=== PATIENT | female | born 1980 | race Two or more races ===

== ENCOUNTER 2017-03-08 12:36 | Inpatient (IN) | payer BC, MEDICAID ==
[~2017-03-08] VITALS: Ht 162.6 cm; Wt 85.7 kg
[2017-03-08 12:47] VITALS: BP 117/80
--- NOTE | 2017-03-08 12:59 | Emergency Room Report ---
History of Present Illness General Chief Complaint: Skin Rash/Abscess Source: Patient Present Illness HPI 36-year-old female presents to the ED for recurrent infections Patient states that she has been having recurrent symptoms in the groin area off and on for 10 years. She states she has tried various oral antibiotic regimens in addition to injection antibiotic regimens without relief of her symptoms. pt. denies fevers or chills at this time. pt. reports 2/10 tenderness upon palpation otherwise denies pain. Denies CP, Palpitations, LOC, AMS, dizziness, Changes in Vision, Sensation, paresthesias, or a sudden severe headache. Allergies: Coded Allergies: CIPROFLOXACIN (Verified Allergy, Mild, Joint Pain, 03/08/17) Patient History Past Medical History: see triage record Past Surgical History: none Pertinent Family History: none Now: No Reviewed Nursing Documentation: PMH: Agreed, PSxH: Agreed Nursing Documentation-PMH Hx Gastrointestinal Problems: No - HIDRADENITIS SUPPURATIVA Review of Systems All Other Systems: negative except mentioned in HPI Physical Exam Vital Signs Date Time Temp Pulse Resp B/P (MAP) Pulse Ox O2 Delivery O2 Flow Rate FiO2 03/08/17 12:40 97.5 83 20 117/80 99 Room Air Sp02 EP Interpretation: reviewed, normal General Appearance: no apparent distress, alert, GCS 15, non-toxic Head: normocephalic, atraumatic Eyes: bilateral eye normal inspection, bilateral eye PERRL ENT: hearing grossly normal, normal voice Neck: full range of motion Respiratory: lungs clear, normal breath sounds, speaking full sentences Cardiovascular #1: regular rate, rhythm Gastrointestinal: normal bowel sounds, non tender, soft Rectal: deferred Genitourinary: other - multiple swollen indurations with tunneling present on the inner proximal thighs, bilateral groin area and bilateral external labia. no discharge, some erythema, no blisters or open lesions. Musculoskeletal: back normal, gait/station normal, normal range of motion, non- tender Neurologic: alert, oriented x3, responsive, motor strength/tone normal, sensory intact, speech normal Psychiatric: judgement/insight normal, memory normal, mood/affect normal, no suicidal/homicidal ideation Reflexes: 4+ bicep (R), 4+ bicep (L), 4+ tricep (R), 4+ tricep (L), 4+ knee (R) , 4+ knee (L) Skin: normal color, no rash, warm/dry, well hydrated Lymphatic: no adenopathy Medical Decision Making PA Attestation Dr. paul is my supervising Physician whom patient management has been discussed with. Diagnostic Impression: Primary Impression: Hidradenitis suppurativa Additional Impression: UTI (urinary tract infection) Qualified Codes: N30.00 - Acute cystitis without hematuria ER Course 36-year-old female presents to the ED for recurrent infections Patient states that she has been having recurrent symptoms in the groin area off and on for 10 years. She states she has tried various oral antibiotic regimens in addition to injection antibiotic regimens without relief of her symptoms. pt. denies fevers or chills at this time. pt. reports 2/10 tenderness upon palpation otherwise denies pain. Denies CP, Palpitations, LOC, AMS, dizziness, Changes in Vision, Sensation, paresthesias, or a sudden severe headache. Ddx considered but are not limited to cellulitis, hydradenitis Suppurativa, fracture, d/L, gout, sepsis, abscess Vital signs: are WNL, pt. is afebrile H&PE are most consistent with Vulval hydradenitis Suppurativa requiring direct admission for surgical or IV abx management. ORDERS: -Gen. preop labwork: CBC, CMP, PT/PTT, Type and Screen -- Pt. blood type O Positive -Urine Hcg: negative - UA : positive for UTI- elevated WBC's and leukocytes in the presence of bacteria. - EK BPM NSR , no acute changes. ED INTERVENTIONS: None required at this time. -Surgical Consult : DISPOSITION: at this time pt. will be admitted to Dr. Yañez for hydradenitis Suppurativa. Dr. Yañez agreed to admit the pt. and to continue pt. care management. Labs Test 03/08/17 12:40 03/08/17 13:15 03/08/17 13:30 Urine Color Pale yellow Urine Appearance Slightly cloudy Urine pH 6 (4.5-8.0) Urine Specific [place] 1.010 (1.005-1.035) Urine Protein Negative (NEGATIVE) Urine Glucose (UA) Negative (NEGATIVE) Urine Ketones Negative (NEGATIVE) Urine Occult Blood Negative (NEGATIVE) Urine Nitrite Negative (NEGATIVE) Urine Bilirubin Negative (NEGATIVE) Urine Urobilinogen Normal MG/DL (0.0-1.0) Urine Leukocyte Esterase 2+ (NEGATIVE) Urine RBC 0-2 /HPF (0 - 2) Urine WBC 5-10 /HPF (0 - 2) Urine Squamous Epithelial Cells Many /LPF (NONE/OCC) Urine Bacteria Few /HPF (NONE) Urine HCG, Qualitative Negative Lactic Acid Level 1.20 mmol/L (0.66-2.22) White Blood Count 8.6 K/UL (4.8-10.8) Red Blood Count 3.92 M/UL (4.20-5.40) Hemoglobin 12.6 G/DL (12.0-16.0) Hematocrit 38.3 % (37.0-47.0) Mean Corpuscular Volume 98 FL (80-99) Mean Corpuscular Hemoglobin 32.2 PG (27.0-31.0) Mean Corpuscular Hemoglobin Concent 32.9 G/DL (32.0-36.0) Red Cell Distribution Width 11.8 % (11.6-14.8) Platelet Count 213 K/UL (150-450) Mean Platelet Volume 9.0 FL (6.5-10.1) Neutrophils (%) (Auto) 53.2 % (45.0-75.0) Lymphocytes (%) (Auto) 31.5 % (20.0-45.0) Monocytes (%) (Auto) 8.8 % (1.0-10.0) Eosinophils (%) (Auto) 5.4 % (0.0-3.0) Basophils (%) (Auto) 1.1 % (0.0-2.0) Prothrombin Time 10.7 SEC (9.30-11.50) Prothromb Time International Ratio 1.0 (0.9-1.1) Activated Partial Thromboplast Time 28 SEC (23-33) Sodium Level 141 MMOL/L (136-145) Potassium Level 3.5 MMOL/L (3.5-5.1) Chloride Level 104 MMOL/L (98-107) Carbon Dioxide Level 23 MMOL/L (21-32) Anion Gap 14 mmol/L (5-15) Blood Urea Nitrogen 7 mg/dL (7-18) Creatinine 0.6 MG/DL (0.55-1.30) Estimat Glomerular Filtration Rate > 60 mL/min (>60) Glucose Level 93 MG/DL (74-106) Calcium Level 8.7 MG/DL (8.5-10.1) Total Bilirubin 0.5 MG/DL (0.2-1.0) Aspartate Amino Transf (AST/SGOT) 17 U/L (15-37) Alanine Aminotransferase (ALT/SGPT) 18 U/L (12-78) Alkaline Phosphatase 54 U/L (46-116) Total Protein 8.1 G/DL (6.4-8.2) Albumin 3.5 G/DL (3.4-5.0) Globulin 4.6 g/dL Albumin/Globulin Ratio 0.8 (1.0-2.7) EKG Diagnostic Results EP Interpretation: Dr. Salinas Rate: normal - 72 BPM Rhythm: NSR ST Segments: no acute changes ASA given to the pt in ED: No PA Scribe Text This interpretation was scribed by JB Martinez Last Vital Signs Date Time Temp Pulse Resp B/P (MAP) Pulse Ox O2 Delivery O2 Flow Rate FiO2 03/08/17 12:40 97.5 83 20 117/80 99 Room Air Disposition: ADMITTED INPATIENT Condition: Serious Scripts No Active Prescriptions or Reported Meds Agustina Martinez Mar 08, 2017 12:59
[2017-03-08 13:02] LABS: APPEARANCE,URINE SLIGHTLY CLOUDY; KETONES,URINE NEGATIVE (NEGATIVE); LEUKOCYTE ESTERASE ,URINE 2+ (NEGATIVE); NITRITE,URINE NEGATIVE (NEGATIVE); PH,URINE 6 (4.5-8.0); PROTEIN,URINE NEGATIVE (NEGATIVE); UROBILINOGEN,URINE NORMAL MG/DL (0.0-1.0)
[2017-03-08 13:26] LABS: BACTERIA,URINE FEW /HPF; RBC,URINE 0-2 /HPF (0 - 2); SQUAMOUS EPITHELIAL CELL,UR MANY /LPF (NONE/OCC)
[2017-03-08 14:00] LABS: BASOPHILS % (AUTO) 1.1 % (0.0-2.0); EOSINOPHILS % (AUTO) 5.4 % (0.0-3.0); LYMPHOCYTES % (AUTO) 31.5 % (20.0-45.0); MEAN CORPUSCULAR HEMOGLOBIN 32.2 PG (27.0-31.0); MEAN CORPUSCULAR HGB CONC 32.9 G/DL (32.0-36.0); MEAN CORPUSCULAR VOLUME 98 FL (80-99); MONOCYTES % (AUTO) 8.8 % (1.0-10.0); NEUTROPHILS % (AUTO) 53.2 % (45.0-75.0); PLATELET COUNT 213 K/UL (150-450); RED BLOOD COUNT 3.92 M/UL (4.20-5.40); RED CELL DISTRIBUTION WIDTH 11.8 % (11.6-14.8); WHITE BLOOD COUNT 8.6 K/UL (4.8-10.8)
[2017-03-08 14:11] LABS: PROTHROMBIN TIME 10.7 SEC (9.30-11.50)
[2017-03-08 14:12] LABS: ANION GAP 14 mmol/L (5-15); CALCIUM 8.7 MG/DL (8.5-10.1); CARBON DIOXIDE 23 MMOL/L (21-32); CHLORIDE 104 MMOL/L (98-107); CREATININE 0.6 MG/DL (0.55-1.30); GLOMERULAR FILTRATION RATE > 60 mL/min (>60); POTASSIUM 3.5 MMOL/L (3.5-5.1); SODIUM 141 MMOL/L (136-145)
[2017-03-08 14:16] LABS: ALANINE AMINOTRANSFERASE 18 U/L (12-78); ALBUMIN/GLOBULIN RATIO 0.8 (1.0-2.7); ASPARTATE AMINO TRANSFERASE 17 U/L (15-37); TOTAL PROTEIN 8.1 G/DL (6.4-8.2)
[2017-03-08] MEDS ORDERED: Morphine Sulfate 2mg/ml Inj IVP PRN (16:00)
[2017-03-08] MEDS ORDERED: Morphine Sulfate 4mg/ml Inj IVP PRN (16:00)
[2017-03-08] MEDS ORDERED: Zolpidem 5mg tab ORAL PRN (16:00)
[2017-03-08] MEDS ORDERED: Miralax 17gm pkt ORAL PRN (16:00)
[2017-03-08] MEDS ORDERED: Mylanta II UD 30ml ORAL PRN (16:00)
--- NOTE | 2017-03-08 16:19 | History and Physical ---
History of Present Illness General Date patient seen: Mar 08, 2017 Time patient seen: 16:19 Reason for Hospitalization: Abscess Present Illness HPI 36y/o female with pmh of hidradenitis suppurative who presents with worsening b/ l groin lesions. Pt had recurrent symptoms in groin area off and on for 10 years. She has tried various antibitoic regimens without success. She has also been on Humira up until 12/2016 but w/o much effect. She notes worsening pain/ swelling/redness/drainage from groin lesions. Denies f/c, n/v, d/c, chest pain, SOB, dysuria. Has had general anesthesia before without any problems. Able to walk a few blocks or climb at least a flight of stairs without symptoms of chest pain or SOB. Allergies: Coded Allergies: CIPROFLOXACIN (Verified Allergy, Mild, Joint Pain, 03/08/17) Medication History No Active Prescriptions or Reported Meds Patient History History Provided By: Patient, Family Member, Medical Record, PMD Healthcare decision maker Resuscitation status Advanced Directive on File Past Medical/Surgical History Past Medical/Surgical History: (1) Hidradenitis suppurativa (2) Appendectomy in 2014 (3) H/o lap band in 2004 Family History Family History: Patient reports no known family medical history. Social History Social History: (1) No significant social history Review of Systems ROS Narrative CONSTITUTIONAL: No weight loss, fever, chills, weakness or fatigue. HEENT: Eyes: No visual loss, blurred vision, double vision or yellow sclerae. Ears, Nose, Throat: No hearing loss, sneezing, congestion, runny nose or sore throat. SKIN: No rash or itching. CARDIOVASCULAR: No chest pain, chest pressure or chest discomfort. No palpitations or edema. RESPIRATORY: No shortness of breath, cough or sputum. GASTROINTESTINAL: No anorexia, nausea, vomiting or diarrhea. No abdominal pain or blood. NEUROLOGICAL: No headache, dizziness, syncope, paralysis, ataxia, numbness or tingling in the extremities. No change in bowel or bladder control. MUSCULOSKELETAL: No muscle, back pain, joint pain or stiffness. HEMATOLOGIC: No anemia, bleeding or bruising. LYMPHATICS: No enlarged nodes. No history of splenectomy. PSYCHIATRIC: No history of depression or anxiety. ENDOCRINOLOGIC: No reports of sweating, cold or heat intolerance. No polyuria or polydipsia. ALLERGIES: No history of asthma, hives, eczema or rhinitis. Physical Exam Physical Exam Narrative General: alert, cooperative, no distress, appears stated age Head: normocephalic, without obvious abnormality, atraumatic Eyes: conjunctivae/corneas clear. PERRL, EOM's intact Throat: lips, mucosa, and tongue normal. MMM Neck: supple, symmetrical, trachea midline, and no JVD Lungs: clear to auscultation bilaterally Heart: regular rate and rhythm, S1, S2 normal, no murmur, click, rub or gallop Abdomen: soft, non-tender, non-distended, bowel sounds normal; no masses or organomegaly Extremities: extremities normal, atraumatic, no cyanosis or edema Pulses: 2+ and symmetric Skin: +HS lesions of b/l groin Neurologic: grossly normal, no focal deficits Last 24 Hour Vital Signs Date Time Temp Pulse Resp B/P (MAP) Pulse Ox O2 Delivery O2 Flow Rate FiO2 03/08/17 15:40 97.5 78 20 117/80 99 Room Air 03/08/17 12:47 97.5 78 20 117/80 99 Room Air 03/08/17 12:40 97.5 83 20 117/80 99 Room Air Laboratory Tests Test 03/08/17 12:40 03/08/17 13:15 03/08/17 13:30 Urine Color Pale yellow Urine Appearance Slightly cloudy Urine pH 6 (4.5-8.0) Urine Specific [place] 1.010 (1.005-1.035) Urine Protein Negative (NEGATIVE) Urine Glucose (UA) Negative (NEGATIVE) Urine Ketones Negative (NEGATIVE) Urine Occult Blood Negative (NEGATIVE) Urine Nitrite Negative (NEGATIVE) Urine Bilirubin Negative (NEGATIVE) Urine Urobilinogen Normal MG/DL (0.0-1.0) Urine Leukocyte Esterase 2+ (NEGATIVE) H Urine RBC 0-2 /HPF (0 - 2) Urine WBC 5-10 /HPF (0 - 2) H Urine Squamous Epithelial Cells Many /LPF (NONE/OCC) H Urine Bacteria Few /HPF (NONE) Urine HCG, Qualitative Negative Lactic Acid Level 1.20 mmol/L (0.66-2.22) White Blood Count 8.6 K/UL (4.8-10.8) Red Blood Count 3.92 M/UL (4.20-5.40) L Hemoglobin 12.6 G/DL (12.0-16.0) Hematocrit 38.3 % (37.0-47.0) Mean Corpuscular Volume 98 FL (80-99) Mean Corpuscular Hemoglobin 32.2 PG (27.0-31.0) H Mean Corpuscular Hemoglobin Concent 32.9 G/DL (32.0-36.0) Red Cell Distribution Width 11.8 % (11.6-14.8) Platelet Count 213 K/UL (150-450) Mean Platelet Volume 9.0 FL (6.5-10.1) Neutrophils (%) (Auto) 53.2 % (45.0-75.0) Lymphocytes (%) (Auto) 31.5 % (20.0-45.0) Monocytes (%) (Auto) 8.8 % (1.0-10.0) Eosinophils (%) (Auto) 5.4 % (0.0-3.0) H Basophils (%) (Auto) 1.1 % (0.0-2.0) Prothrombin Time 10.7 SEC (9.30-11.50) Prothromb Time International Ratio 1.0 (0.9-1.1) Activated Partial Thromboplast Time 28 SEC (23-33) Sodium Level 141 MMOL/L (136-145) Potassium Level 3.5 MMOL/L (3.5-5.1) Chloride Level 104 MMOL/L (98-107) Carbon Dioxide Level 23 MMOL/L (21-32) Anion Gap 14 mmol/L (5-15) Blood Urea Nitrogen 7 mg/dL (7-18) Creatinine 0.6 MG/DL (0.55-1.30) Estimat Glomerular Filtration Rate > 60 mL/min (>60) Glucose Level 93 MG/DL (74-106) Calcium Level 8.7 MG/DL (8.5-10.1) Total Bilirubin 0.5 MG/DL (0.2-1.0) Aspartate Amino Transf (AST/SGOT) 17 U/L (15-37) Alanine Aminotransferase (ALT/SGPT) 18 U/L (12-78) Alkaline Phosphatase 54 U/L (46-116) Total Protein 8.1 G/DL (6.4-8.2) Albumin 3.5 G/DL (3.4-5.0) Globulin 4.6 g/dL Albumin/Globulin Ratio 0.8 (1.0-2.7) L Height (Feet): 5 Height (Inches): 4.00 Weight (Pounds): 190 Medications Current Medications Medications (Trade) Dose Ordered Sig/Dennis Route PRN Reason Start Time Stop Time Status Last Admin Dose Admin Al Hydroxide/Mg Hydroxide (Mylanta II) 30 ml Q6H PRN ORAL dyspepsia 03/08/17 16:00 04/07/17 15:59 Dextrose (Dextrose 50%) STAT PRN IV Hypoglycemia 03/08/17 16:00 04/07/17 15:59 Dextrose/Sodium Chloride 1,000 ml @ 75 mls/hr [id number] IV 03/08/17 17:00 04/07/17 16:59 Diphenhydramine HCl (Benadryl) 25 mg Q6H PRN ORAL Itching/Pruritis 03/08/17 16:00 04/07/17 15:59 Docusate Sodium (Colace) 100 mg EVERY 12 HOURS ORAL 03/08/17 21:00 04/07/17 20:59 Morphine Sulfate (Morphine Sulfate) 2 mg Q4H PRN IVP Moderate Pain (Pain Scale 4-6) 03/08/17 16:00 03/15/17 15:59 Morphine Sulfate (Morphine Sulfate) 4 mg Q4H PRN IVP Severe Pain (Pain Scale 7-10) 03/08/17 16:00 03/15/17 15:59 Ondansetron HCl (Zofran) 4 mg Q6H PRN IVP Nausea & Vomiting 03/08/17 16:00 04/07/17 15:59 Polyethylene Glycol (Miralax) 17 gm HSPRN PRN ORAL Constipation 03/08/17 16:00 04/07/17 15:59 Zolpidem Tartrate (Ambien) 5 mg HSPRN PRN ORAL Insomnia 03/08/17 16:00 03/15/17 15:59 Assessment/Plan Problem List: (1) Abscess ICD Codes: L02.91 - Cutaneous abscess, unspecified SNOMED: 251950243 (2) Hidradenitis suppurativa ICD Codes: L73.2 - Hidradenitis suppurativa SNOMED: [id number] Status: stable Assessment/Plan Admit inpt Plastic surgery consulted Check blood cultures IV antibiotics Wound care per surgery Pain control, bowel regimen Supportive care If patient is required to have surgery, based on the patient's medical history, and other available ancillary data, the patient is a LOW risk for an INTERMEDIATE risk procedure. Per the most recent ACC/AHA guidelines, the patient does not need any further cardiopulmonary testing prior to the procedure and there do not appear to be any clear medical contraindications to proceeding with the proposed procedure. D/w pt/family, RN, SW/CM, surgery regarding mgmt and dispo Wolf Feliciano M.D. Mar 08, 2017 16:19
[2017-03-08 16:23] VITALS: BP 129/59
[2017-03-08] MEDS ORDERED: ceFAZolin 1gm/50ml Premix 50 ML IV SCH ×2 (16:30→22:00)
[2017-03-08] MEDS: D5 1/2NS 1,000 ML IV SCH (16:56)
[2017-03-08] MEDS ORDERED: D5 1/2NS 1,000 ML IV SCH (17:00)
[2017-03-08] MEDS: ceFAZolin sod 1 GM in D5W 55 ML IVP SCH (17:52)
[2017-03-08 20:25] VITALS: BP 117/66
[2017-03-08] MEDS: Docusate 100mg cap ORAL SCH (20:49)
[2017-03-09] VITALS (14 sets, daily range): BP systolic 91–126; BP diastolic 56–80
[2017-03-09] MEDS: ceFAZolin sod 1 GM in D5W 55 ML IVP SCH ×4 (02:28→17:37)
[2017-03-09] MEDS: D5 1/2NS 1,000 ML IV SCH ×2 (06:22→20:35)
[2017-03-09] MEDS ORDERED: ceFAZolin 1gm/50ml Premix 50 ML IV ONE (07:05)
[2017-03-09] MEDS ORDERED: Bacitracin 50000 Units Vial ONE (07:05)
[2017-03-09] MEDS ORDERED: NeoSporin Gu Irrig 1ml Amp IRRIG ONE (07:05)
[2017-03-09] MEDS ORDERED: Lidocaine 1% 10mg/ml/EPI 0.01mg/ml 50ml INJ ONE (07:06)
--- NOTE | 2017-03-09 07:06 | Pre-Procedure Note/Attestation ---
Pre-Procedure Note/Attestation Complete Prior to Procedure Planned Procedure: bilateral Procedure Narrative: Bilateral groin and mons debridement and flap elevation Attestation I attest that I discussed the nature of the procedure; its benefits; risks and complications; and alternatives (and the risks and benefits of such alternatives ), prior to the procedure, with the patient (or the patient's legal promotions representative). I attest that, if there was a reasonable possibility of needing a blood transfusion, the patient (or the patient's legal promotions representative) was given the [facility] standardized written summary, pursuant to the Vasile Plummer Blood Safety Act ([place] Health and Safety Code # 1645, as amended). I attest that I re-evaluated the patient just prior to the surgery and that there has been no change in the patient's H&P, except as documented below: DAO CINTRON Mar 09, 2017 07:06
[2017-03-09] MEDS ORDERED: Rate Change PCA 1 Each MISC PRN (07:15)
[2017-03-09] MEDS ORDERED: PCA Education Pamphlet MISC ONE (07:15)
[2017-03-09] MEDS ORDERED: DiphenhydrAMINE 50mg/ml Inj IVP PRN ×2 (07:15→08:30)
[2017-03-09] MEDS ORDERED: Zolpidem 5mg tab ORAL PRN (07:15)
[2017-03-09] MEDS ORDERED: Morphine Sulfate 10mg/ml Inj ONE (07:30)
[2017-03-09] MEDS ORDERED: Sodium Chloride 10ml vial INJ ONE (07:30)
[2017-03-09] MEDS ORDERED: fentaNYL 100 mcg/2 mL IV ONE (07:30)
[2017-03-09] MEDS ORDERED: Midazolam 2mg/2ml Inj ONE (07:30)
[2017-03-09] MEDS ORDERED: Succinylcholine 20mg/ml 10ml vial ONE (07:30)
[2017-03-09] MEDS ORDERED: LR 1000ml ONE (07:30)
[2017-03-09] MEDS ORDERED: Sterile Water Irrig 1000ml IRRIG ONE (07:30)
[2017-03-09] MEDS ORDERED: Zemuron 50mg/5ml Inj IV ONE (07:30)
[2017-03-09] MEDS ORDERED: Ketorolac 30mg Inj ONE (07:30)
[2017-03-09] MEDS ORDERED: Neostigmine 1mg/ml 10ml Inj ONE (07:30)
[2017-03-09] MEDS ORDERED: NS Irrig 1000ml ONE (07:30)
[2017-03-09] MEDS ORDERED: Propofol 200mg/20ml IV ONE (07:30)
[2017-03-09] MEDS ORDERED: LR 1000ml 1,000 ML IVLG SCH (08:16)
--- NOTE | 2017-03-09 08:16 | Anethesia Preoperative Eval ---
Anesthesia Pre-op PMH/ROS General Date of Evaluation: Mar 09, 2017 Time of Evaluation: 07:15 Anesthesiologist: Mayra ASA Score: ASA 2 Mallampati Score Class I : Soft palate, uvula, fauces, pillars visible Class II: Soft palate, uvula, fauces visible Class III: Soft palate, base of uvula visible Class IV: Only hard plate visible Mallampati Classification: Class II Surgeon: Alejo Diagnosis: Recurrent HS Surgical Procedure: Excision of bilateral groin HS Anesthesia History: none Family History: no anesthesia problems Allergies: Coded Allergies: CIPROFLOXACIN (Verified Allergy, Mild, Joint Pain, 03/08/17) Medications: see eMAR Past Medical History Cardiovascular: Denies: HTN, CAD, MD, valve dz, arrhythmia, other Pulmonary: Denies: asthma, COPD, MICHELLE, other Gastrointestinal/Genitourinary: Reports: GERD - mild, Denies: CRI, ESRD, other Neurologic/Psychiatric: Reports: depression/anxiety, Denies: dementia, CVA, TIA, other Endocrine: Denies: DM, hypothyroidism, steroids, other HEENT: Denies: cataract (L), cataract (R), glaucoma, [place] (L), [place] (R), other Hematology/Immune: Denies: anemia, DVT, bleeding disorder, other Musculoskeletal/Integumentary: Denies: OA, RA, DJD, DDD, edema, other Other: obesity PMH Narrative: as above PSxH Narrative: Gastric band, appendectomy Anesthesia Pre-op Phys. Exam Physician Exam Last Vital Signs Date Time Temp Pulse Resp B/P (MAP) Pulse Ox O2 Delivery O2 Flow Rate FiO2 03/09/17 04:00 97.4 70 18 95/56 97 Room Air Constitutional: NAD Neurologic: CN 2-12 intact Cardiovascular: RRR Respiratory: CTA Gastrointestinal: S/NT/ND Airway Exam Mallampati Score: Class II MO: full Neck: flexible ROM: full Teeth: intact Dentures: no upper, no lower Anesthesia Pre-op A/P Labs Hematology Test 03/08/17 13:30 White Blood Count 8.6 K/UL (4.8-10.8) Red Blood Count 3.92 M/UL (4.20-5.40) L Hemoglobin 12.6 G/DL (12.0-16.0) Hematocrit 38.3 % (37.0-47.0) Mean Corpuscular Volume 98 FL (80-99) Mean Corpuscular Hemoglobin 32.2 PG (27.0-31.0) H Mean Corpuscular Hemoglobin Concent 32.9 G/DL (32.0-36.0) Red Cell Distribution Width 11.8 % (11.6-14.8) Platelet Count 213 K/UL (150-450) Mean Platelet Volume 9.0 FL (6.5-10.1) Neutrophils (%) (Auto) 53.2 % (45.0-75.0) Lymphocytes (%) (Auto) 31.5 % (20.0-45.0) Monocytes (%) (Auto) 8.8 % (1.0-10.0) Eosinophils (%) (Auto) 5.4 % (0.0-3.0) H Basophils (%) (Auto) 1.1 % (0.0-2.0) Coagulation Test 03/08/17 13:30 Prothrombin Time 10.7 SEC (9.30-11.50) Prothromb Time International Ratio 1.0 (0.9-1.1) Activated Partial Thromboplast Time 28 SEC (23-33) Chemistry Test 03/08/17 13:15 03/08/17 13:30 Lactic Acid Level 1.20 mmol/L (0.66-2.22) Sodium Level 141 MMOL/L (136-145) Potassium Level 3.5 MMOL/L (3.5-5.1) Chloride Level 104 MMOL/L (98-107) Carbon Dioxide Level 23 MMOL/L (21-32) Anion Gap 14 mmol/L (5-15) Blood Urea Nitrogen 7 mg/dL (7-18) Creatinine 0.6 MG/DL (0.55-1.30) Estimat Glomerular Filtration Rate > 60 mL/min (>60) Glucose Level 93 MG/DL (74-106) Calcium Level 8.7 MG/DL (8.5-10.1) Total Bilirubin 0.5 MG/DL (0.2-1.0) Aspartate Amino Transf (AST/SGOT) 17 U/L (15-37) Alanine Aminotransferase (ALT/SGPT) 18 U/L (12-78) Alkaline Phosphatase 54 U/L (46-116) Total Protein 8.1 G/DL (6.4-8.2) Albumin 3.5 G/DL (3.4-5.0) Globulin 4.6 g/dL Albumin/Globulin Ratio 0.8 (1.0-2.7) L Urine Test Test 03/08/17 12:40 Urine HCG, Qualitative Negative Risk Assessment & Plan Assessment: ASA 2 Plan: GA with ETT PONV prevention Status Change Before Surgery: No Pre-Antibiotics Drug: Ancef 1 gr. Given Within 1 Hr of Incision: Yes Time Given: 07:55 ANDREW THOMAS M.D. Mar 09, 2017 08:15
[2017-03-09] MEDS ORDERED: Midazolam 2mg/2ml Inj IVP PRN (08:30)
[2017-03-09] MEDS ORDERED: Hydromorphone 0.5mg/0.5ml inj IVP PRN (08:30)
[2017-03-09] MEDS ORDERED: Meperidine 50mg/ml Inj(FOR RIGORS ONLY) IV PRN (08:30)
[2017-03-09] MEDS ORDERED: Ketorolac 30mg Inj IV PRN (08:30)
[2017-03-09] MEDS ORDERED: Metoclopramide 10mg/2ml Inj IVP PRN (08:30)
--- NOTE | 2017-03-09 08:39 | Operative Note - PDOC ---
Operative Note Operative Note Pre-op Diagnosis: Bilateral groin infected tissue Procedure: Debridement of bilateral groin and flap elevation Surgeon: Alejo Tube Filler: Paola Anesthesia: general Specimen: yes Complications: none Estimated Blood Loss: minimal Drains: none Implant(s) used?: No DAO CINTRON Mar 09, 2017 08:39
[2017-03-09] MEDS: Heparin 5000 units/ml inj SUBQ SCH ×2 (09:00→20:42)
[2017-03-09] MEDS: PCA HYDROmorphone 1mg/ml 30 ML IV PRN (09:22)
--- NOTE | 2017-03-09 09:29 | Immediate Post-Op Evaluation ---
Immediate Post-Op Evalulation Immediate Post-Op Evalulation Procedure: Excision of bilateral groin HS Date of Evaluation: Mar 09, 2017 Time of Evaluation: 08:55 IV Fluids: 1000 Blood Products: none Estimated Blood Loss: 50 Urinary Output: 300 Blood Pressure Systolic: 116 Blood Pressure Diastolic: 54 Pulse Rate: 72 Respiratory Rate: 20 O2 Sat by Pulse Oximetry: 99 Temperature (Fahrenheit): 97.6 Pain Score (1-10): 2 Nausea: No Vomiting: No Complications none Patient Status: reacts, patent, extubated, none Hydration Status: adequate ANDREW THOMAS M.D. Mar 09, 2017 09:29
[2017-03-09] MEDS: Docusate 100mg cap ORAL SCH ×2 (10:24→20:35)
--- NOTE | 2017-03-09 15:45 | Consultation ---
DATE OF CONSULTATION: 03/09/2017 CONSULTING PHYSICIAN: Gloria Dhillon M.D. ADMITTING PHYSICIAN: Vipin King M.D. HISTORY OF PRESENT ILLNESS: This is a 36-year-old female, admitted to the emergency room last night for bilateral groin abscesses and pain. She was admitted, started on IV antibiotics, and I am seeing the patient for surgical evaluation. PAST MEDICAL HISTORY: Significant for hidradenitis. PAST SURGICAL HISTORY: None. ALLERGIES: Ciprofloxacin. MEDICATIONS: Previous use of antibiotics. PHYSICAL EXAMINATION: GENERAL: The patient is alert and oriented. HEART: Regular rate and rhythm. ABDOMEN: Soft, nontender, and nondistended. EXTREMITIES: Examination of the upper thigh and groin region reveals multiple abscesses affecting the right side more than the left as well as abscesses in the mons region. ASSESSMENT AND PLAN: This is a 36-year-old female with multiple areas of abscesses and infected tissues within her groin secondary to hidradenitis. She will require radical excision of these areas with staged reconstruction. The flaps we raised at the first operation and the second operation within 48 hours will be closing the wounds. The reason for delay in the surgery will be to allow for the infection to clear before definitive closure. Gloria Dhillon M.D. DR: ALEXANDER JOB#: [id number] CC:
--- NOTE | 2017-03-09 16:34 | Cardiology Report ---
APPROVED REPORT EKG Measurement Heart [id number] MD [id number] Normal sinus rhythm Normal ECG
[2017-03-09] MEDS ORDERED: Metoclopramide 10mg/2ml Inj IVP ONE (19:10)
[2017-03-09] MEDS: PCA shift volume MISC SCH (19:11)
--- NOTE | 2017-03-09 20:45 | Operative Note - Dictated ---
DATE OF OPERATION: 03/09/2017 PREOPERATIVE DIAGNOSES: 1. Bilateral groin infected tissue. 2. Infected mons tissue. 3. Infected left buttock tissue. POSTOPERATIVE DIAGNOSES: 1. Bilateral groin infected tissue. 2. Infected mons tissue. 3. Infected left buttock tissue. PROCEDURES: 1. Radical excision of bilateral infected groin tissue. 2. Radical excision of infected mons tissue. 3. Radical excision of left buttock tissue. 4. Elevation of an anterior fasciocutaneous flap for closure of right groin wound. 5. Elevation of a posterior fasciocutaneous flap for closure of right groin wound. 6. Elevation of a posterior thigh flap for closure of left buttock wound. SURGEON: Gloria Dhillon M.D. FLORAL ASSISTANT: Coleen Guevara M.D. ANESTHESIA: General. COMPLICATIONS: None. DRAINS: None. DISPOSITION: Stable to the recovery room. INDICATIONS FOR SURGERY: This is a 36-year-old female admitted for bilateral groin infection and pain. Upon evaluation by me, I felt that she was an appropriate candidate for radical excision of her infected tissue with staged reconstruction. The reason for the staging is that given the presence of infection, the primary closure at the same time as the excision will cause an increased risk of postoperative wound infection. As such, she will undergo a right radical excision with flap elevation and stage closed within 48 hours. She understood the risks and benefits of surgery and agreed to proceed. DETAILS OF THE OPERATION: The patient was brought to the operating room and laid in the lithotomy position on the operating table. Her bilateral thighs and lower abdomen were prepped and draped in a sterile and usual fashion. We first began by injecting lidocaine with epinephrine into all surgical núñez. Once 5 minutes elapsed, we then proceeded to use a 10-blade to first make the left upper mons incision around the infected tissue mass, this measured approximately 6 x 3 cm. The tissue was radically excised all the way down to the level of the subcutaneous fat. We then turned our attention to the left groin infected tissue. In a similar fashion, an elliptical type of incision was made to radical excise the tissue all the way down to the level of the subcutaneous fat, the left buttock was then addressed by using a marking pen to delineate and an ellipse that was measured 8 x 4 cm and the incision was made using a 10-blade with electrocautery, then used to radically excise the tissue all the way down to the level of the subcutaneous fat and then lastly, the right groin tissue was addressed by using a marking pen to delineate the extent of the infected tissue. A 10-blade was then used to make this incision. The dimensions of this wound that resulted was 12 x 7 cm. Both the right groin wound and the left buttock wound were not amenable to primary closure after achieving hemostasis with pulse lavage irrigation. For these 2 wounds, we had to elevate flaps to allow for definitive staged closure. We first began by elevating an anterior fasciocutaneous thigh flap on the right groin based off of perforators of the superficial femoral artery with proximal and distal incisions made to fully mobilize the flap above the adductor fascia. In a similar fashion, the posterior thigh flap was also elevated based on perforators of the deep femoral artery with proximal and distal incisions made to fully mobilize this flap and allow for definitive and tension-free flap and wound closure. Once this was done to the left buttock wound, a posterior thigh flap was elevated based off of perforators of the posterior femoral artery with distal and proximal incisions made to fully mobilize this flap as well. Once this was done, it was noted that the wound could be closed without tension. Again given the fact that there was pus present within these wounds, we felt that it was appropriate to stage the closure, as such, the flaps were elevated, but left in situ. The wounds were then packed after hemostasis was achieved. The plan will be to bring the patient back to the operating room in 48 hours for definitive flap closure. Gloria Dhillon M.D. DR: Roosevelt JOB#: [id number] CC:
--- NOTE | 2017-03-09 22:53 | General Progress Note ---
Assessment/Plan Problem List: (1) Abscess ICD Codes: L02.91 - Cutaneous abscess, unspecified SNOMED: 864151633 (2) Hidradenitis suppurativa ICD Codes: L73.2 - Hidradenitis suppurativa SNOMED: [id number] Status: stable Assessment/Plan Appreciate plastic surgery rec's s/p debridement of bilateral groin and flap elevation on 03/09/17 Cont IV abx F/u cultures Post operative recommendations include: - encourage mobilization/ambulation - encourage incentive spirometry to optimize pulmonary hygiene - DVT/GI prophylaxis as appropriate--SCDs, HSQ - pain control, supportive care, bowel regimen DVT ppx: SCDs, HSQ as pt is now moderate risk postop D/w pt/family, RN, SW/CM, surgery regarding mgmt and dispo Subjective Date patient seen: Mar 09, 2017 Time patient seen: 16:00 ROS Limited/Unobtainable: No Constitutional: Reports: no symptoms HEENT: Reports: no symptoms Cardiovascular: Reports: no symptoms Respiratory: Reports: no symptoms Gastrointestinal/Abdominal: Reports: nausea Genitourinary: Reports: no symptoms Neurologic/Psychiatric: Reports: no symptoms Endocrine: Reports: no symptoms Hematologic/Lymphatic: Reports: no symptoms Allergies: Coded Allergies: CIPROFLOXACIN (Verified Allergy, Mild, Joint Pain, 03/08/17) All Systems: reviewed and negative except above Subjective No acute o/n events s/p debridement of bilateral groin and flap elevation today Pt doing well. Pain controlled. Still feeling a bit drowsy postop and some nausea. No emesis. Tolerating PO. Denies f/c, chest pain, SOB, abd pain Objective Last 24 Hour Vital Signs Date Time Temp Pulse Resp B/P (MAP) Pulse Ox O2 Delivery O2 Flow Rate FiO2 03/09/17 20:00 20 03/09/17 20:00 97.5 58 19 96/57 97 Room Air 03/09/17 18:24 20 03/09/17 16:00 97.6 58 18 126/57 99 Nasal Cannula 3.0 03/09/17 15:45 21 03/09/17 12:00 98.6 57 19 104/58 98 Nasal Cannula 3.0 03/09/17 11:34 97.5 77 18 118/80 97 Nasal Cannula 3.0 03/09/17 11:09 20 03/09/17 11:04 97.5 65 18 105/64 100 Nasal Cannula 3.0 03/09/17 09:52 98.6 03/09/17 09:50 21 03/09/17 09:50 98.6 61 21 113/68 100 Nasal Cannula 3.0 03/09/17 09:35 19 03/09/17 09:35 60 17 113/65 100 Nasal Cannula 3.0 03/09/17 09:29 72 20 99 03/09/17 09:22 15 03/09/17 09:20 60 11 111/69 100 Nasal Cannula 3.0 03/09/17 09:10 60 11 115/64 100 Nasal Cannula 3.0 03/09/17 09:03 71 15 110/67 100 Simple Mask 6.0 03/09/17 08:57 61 21 99/58 100 Simple Mask 6.0 03/09/17 08:52 98.3 82 22 105/61 100 Simple Mask 6.0 03/09/17 04:00 97.4 70 18 95/56 97 Room Air 03/09/17 00:15 97.8 74 18 91/58 100 Room Air Intake and Output 03/09/17 03/10/17 19:00 07:00 Intake Total 2015 ml Output Total 650 ml Balance 1365 ml Intake Oral 340 ml IV Total 1675 ml Output Urine Total 600 ml Estimated Blood Loss 50 ml # Voids 1 Height (Feet): 5 Height (Inches): 4.00 Weight (Pounds): 189 Objective General: alert, cooperative, no distress, appears stated age Head: normocephalic, without obvious abnormality, atraumatic Eyes: conjunctivae/corneas clear. PERRL, EOM's intact Throat: lips, mucosa, and tongue normal. MMM Neck: supple, symmetrical, trachea midline, and no JVD Lungs: clear to auscultation bilaterally Heart: regular rate and rhythm, S1, S2 normal, no murmur, click, rub or gallop Abdomen: soft, non-tender, non-distended, bowel sounds normal; no masses or organomegaly Extremities: extremities normal, atraumatic, no cyanosis or edema Pulses: 2+ and symmetric Skin: Dressing c/d/i Neurologic: grossly normal, no focal deficits Wolf Feliciano M.D. Mar 09, 2017 22:53
[2017-03-10] VITALS: BP 94/55
[2017-03-10] MEDS: ceFAZolin sod 1 GM in D5W 55 ML IVP SCH ×3 (00:33→18:23)
[2017-03-10 04:00] VITALS: BP 98/60
[2017-03-10] MEDS: PCA shift volume MISC SCH ×2 (07:24→19:28)
[2017-03-10 08:00] VITALS: BP 110/64
[2017-03-10] MEDS: D5 1/2NS 1,000 ML IV SCH ×2 (09:24→21:38)
[2017-03-10] MEDS: Docusate 100mg cap ORAL SCH ×2 (09:25→21:38)
[2017-03-10] MEDS: Heparin 5000 units/ml inj SUBQ SCH ×2 (09:28→21:44)
--- NOTE | 2017-03-10 10:04 | 48 Hour Post Anesthesia Eval ---
Post Anesthesia Evaluation Procedure: Excision of bilateral groin HS Date of Evaluation: Mar 10, 2017 Time of Evaluation: 10:03 Blood Pressure Systolic: 116 0: 72 Pulse Rate: 68 Respiratory Rate: 20 Temperature (Fahrenheit): 97.5 O2 Sat by Pulse Oximetry: 99 Airway: patent Nausea: No Vomiting: No Pain Intensity: 3 Hydration Status: adequate Cardiopulmonary Status: stable Mental Status/LOC: patient returned to baseline Follow-up Care/Observations: n/a Post-Anesthesia Complications: none Follow-up care needed: N/A ANDREW THOMAS M.D. Mar 10, 2017 10:04
[2017-03-10] MEDS ORDERED: Naloxone 0.4mg/ml Inj IVP PRN (10:10)
--- NOTE | 2017-03-10 10:21 | General Progress Note ---
Progress Note Progress Note Pt seen and examined. POD #1 from radical excision of HS tissues. Doing well. To OR in AM for wound closure. Consent and NPO after MN. MD ABDULAZIZ Marte AMIR Mar 10, 2017 10:20
[2017-03-10] MEDS ORDERED: PCA Education Pamphlet MISC ONE (10:30)
[2017-03-10] MEDS: PCA HYDROmorphone 1mg/ml 30 ML IV PRN (10:59)
[2017-03-10 12:00] VITALS: BP 96/53
--- NOTE | 2017-03-10 12:55 | Anethesia Preoperative Eval ---
Anesthesia Pre-op PMH/ROS General Date of Evaluation: Mar 10, 2017 Anesthesiologist: Paulo ASA Score: ASA 2 Mallampati Score Class I : Soft palate, uvula, fauces, pillars visible Class II: Soft palate, uvula, fauces visible Class III: Soft palate, base of uvula visible Class IV: Only hard plate visible Mallampati Classification: Class II Surgeon: Alejo Diagnosis: HS Surgical Procedure: Bilateral groin debriedment and flap closure Anesthesia History: none Family History: no anesthesia problems Allergies: Coded Allergies: CIPROFLOXACIN (Verified Allergy, Mild, Joint Pain, 03/08/17) Medications: see eMAR Past Medical History Cardiovascular: Denies: HTN, CAD, [place], valve dz, arrhythmia, other Pulmonary: Denies: asthma, COPD, MICHELLE, other Gastrointestinal/Genitourinary: Reports: GERD, Denies: CRI, ESRD, other Neurologic/Psychiatric: Reports: depression/anxiety, Denies: dementia, CVA, TIA, other Endocrine: Denies: DM, hypothyroidism, steroids, other HEENT: Denies: cataract (L), cataract (R), glaucoma, SOKAOGON (L), SOKAOGON (R), other Hematology/Immune: Denies: anemia, DVT, bleeding disorder, other Musculoskeletal/Integumentary: Reports: other - recurrent HS, Denies: OA, RA, DJD, DDD, edema Other: other - overweight PSxH Narrative: lap appy, gastric band, bilateral groin debriedment Anesthesia Pre-op Phys. Exam Physician Exam Last Vital Signs Date Time Temp Pulse Resp B/P (MAP) Pulse Ox O2 Delivery O2 Flow Rate FiO2 03/10/17 12:00 98.5 66 18 96/53 96 Room Air 03/09/17 16:00 3.0 Constitutional: NAD Cardiovascular: RRR Respiratory: CTA Airway Exam Mallampati Score: Class II MO: full ROM: full Teeth: intact Anesthesia Pre-op A/P Labs see chart Risk Assessment & Plan Assessment: ASA II Plan: GA Status Change Before Surgery: No Pre-Antibiotics Drug: ANETA AMOR M.D. Mar 10, 2017 12:55
[2017-03-10 16:00] VITALS: BP 106/62
[2017-03-10 20:49] VITALS: BP 96/58
--- NOTE | 2017-03-10 22:19 | General Progress Note ---
Assessment/Plan Problem List: (1) Abscess ICD Codes: L02.91 - Cutaneous abscess, unspecified SNOMED: 084838278 (2) Hidradenitis suppurativa ICD Codes: L73.2 - Hidradenitis suppurativa SNOMED: [id number] Status: stable Assessment/Plan Appreciate plastic surgery rec's s/p debridement of bilateral groin and flap elevation on 03/09/17 Plan for OR in AM for wound closure Cont IV abx F/u cultures Wound care per surgery Post operative recommendations include: - encourage mobilization/ambulation - encourage incentive spirometry to optimize pulmonary hygiene - DVT/GI prophylaxis as appropriate--SCDs, HSQ - pain control, supportive care, bowel regimen DVT ppx: SCDs, HSQ as pt is now moderate risk postop D/w pt/family, RN, SW/CM, surgery regarding mgmt and dispo Subjective Date patient seen: Mar 10, 2017 Time patient seen: 17:45 ROS Limited/Unobtainable: No Constitutional: Reports: no symptoms HEENT: Reports: no symptoms Cardiovascular: Reports: no symptoms Respiratory: Reports: no symptoms Gastrointestinal/Abdominal: Reports: no symptoms Genitourinary: Reports: no symptoms Neurologic/Psychiatric: Reports: no symptoms Endocrine: Reports: no symptoms Hematologic/Lymphatic: Reports: no symptoms Allergies: Coded Allergies: CIPROFLOXACIN (Verified Allergy, Mild, Joint Pain, 03/08/17) All Systems: reviewed and negative except above Subjective No acute o/n events s/p debridement of bilateral groin and flap elevation yesterday POD#1 Pt doing well. Pain controlled. Denies f/c, chest pain, n/v, SOB, abd pain Objective Last 24 Hour Vital Signs Date Time Temp Pulse Resp B/P (MAP) Pulse Ox O2 Delivery O2 Flow Rate FiO2 03/10/17 20:49 97.6 88 19 96/58 97 Room Air 03/10/17 20:00 18 03/10/17 16:00 18 03/10/17 16:00 98.1 82 18 106/62 97 Room Air 03/10/17 12:00 17 03/10/17 12:00 98.5 66 18 96/53 96 Room Air 03/10/17 10:04 68 20 99 03/10/17 08:00 18 03/10/17 08:00 98.0 72 18 110/64 96 Room Air 03/10/17 04:00 98.5 83 19 98/60 96 Room Air 03/10/17 04:00 20 03/10/17 00:00 20 03/10/17 00:00 98.5 65 19 94/55 98 Room Air Intake and Output 03/10/17 03/11/17 19:00 07:00 Intake Total 1325 ml Output Total 700 ml Balance 625 ml Intake Oral 200 ml IV Total 1125 ml Output Urine Total 700 ml Height (Feet): 5 Height (Inches): 4.00 Weight (Pounds): 189 Objective General: alert, cooperative, no distress, appears stated age Head: normocephalic, without obvious abnormality, atraumatic Eyes: conjunctivae/corneas clear. PERRL, EOM's intact Throat: lips, mucosa, and tongue normal. MMM Neck: supple, symmetrical, trachea midline, and no JVD Lungs: clear to auscultation bilaterally Heart: regular rate and rhythm, S1, S2 normal, no murmur, click, rub or gallop Abdomen: soft, non-tender, non-distended, bowel sounds normal; no masses or organomegaly Extremities: extremities normal, atraumatic, no cyanosis or edema Pulses: 2+ and symmetric Skin: Dressing c/d/i Neurologic: grossly normal, no focal deficits Wolf Feliciano M.D. Mar 10, 2017 22:19
[2017-03-11] VITALS (14 sets, daily range): BP systolic 91–111; BP diastolic 52–68
[2017-03-11] MEDS: ceFAZolin sod 1 GM in D5W 55 ML IVP SCH ×3 (02:11→17:52)
[2017-03-11] MEDS ORDERED: Metoclopramide 10mg/2ml Inj IVP PRN ×2 (07:00→08:15)
[2017-03-11] MEDS ORDERED: Zolpidem 5mg tab ORAL PRN (07:00)
[2017-03-11] MEDS ORDERED: PCA Education Pamphlet MISC ONE ×3 (07:00→17:00)
--- NOTE | 2017-03-11 07:00 | Pre-Procedure Note/Attestation ---
Pre-Procedure Note/Attestation Complete Prior to Procedure Planned Procedure: bilateral Procedure Narrative: Closure of bilateral thigh and mons wounds Indications for Procedure Pre-Operative Diagnosis: Bilateral groin infected tissue Attestation I attest that I discussed the nature of the procedure; its benefits; risks and complications; and alternatives (and the risks and benefits of such alternatives ), prior to the procedure, with the patient (or the patient's legal merchandising representative). I attest that, if there was a reasonable possibility of needing a blood transfusion, the patient (or the patient's legal merchandising representative) was given the [facility] standardized written summary, pursuant to the [place] Blood Safety Act ([place] Health and Safety Code # 1645, as amended). I attest that I re-evaluated the patient just prior to the surgery and that there has been no change in the patient's H&P, except as documented below: DAO CINTRON Mar 11, 2017 07:00
[2017-03-11] MEDS ORDERED: Lidocaine 1% 10mg/ml/Epi 0.005mg/ml 30ml vial INJ ONE (07:03)
[2017-03-11] MEDS ORDERED: Bacitracin 50000 Units Vial ONE (07:03)
[2017-03-11] MEDS ORDERED: NeoSporin Gu Irrig 1ml Amp IRRIG ONE (07:03)
[2017-03-11] MEDS ORDERED: Propofol 200mg/20ml IV ONE (07:03)
[2017-03-11] MEDS: PCA shift volume MISC SCH ×2 (07:06→19:19)
[2017-03-11] MEDS ORDERED: Morphine Sulfate 10mg/ml Inj ONE (07:30)
[2017-03-11] MEDS ORDERED: Nimbex 2mg/ml Inj 10ML IVP ONE (07:30)
[2017-03-11] MEDS ORDERED: Sterile Water Irrig 1000ml IRRIG ONE (07:30)
[2017-03-11] MEDS ORDERED: Midazolam 2mg/2ml Inj ONE (07:30)
[2017-03-11] MEDS ORDERED: Glycopyrrolate 0.2mg/ml 1ml Vial ONE (07:30)
[2017-03-11] MEDS ORDERED: Lidocaine 1% MPF 10mg/ml 5ml ONE (07:30)
[2017-03-11] MEDS ORDERED: LR 1000ml ONE (07:30)
[2017-03-11] MEDS ORDERED: NS Irrig 1000ml ONE (07:30)
[2017-03-11] MEDS ORDERED: Ketorolac 30mg Inj ONE (07:30)
[2017-03-11] MEDS ORDERED: Sodium Chloride 10ml vial INJ ONE (07:30)
[2017-03-11] MEDS ORDERED: Neostigmine 1mg/ml 10ml Inj ONE (07:30)
[2017-03-11] MEDS ORDERED: Succinylcholine 20mg/ml 10ml vial ONE (07:30)
[2017-03-11] MEDS ORDERED: Morphine Sulfate 4mg/ml Inj IVP PRN (08:05)
[2017-03-11] MEDS ORDERED: Morphine Sulfate 2mg/ml Inj IVP PRN ×2 (08:05→09:20)
[2017-03-11] MEDS ORDERED: LR 1000ml 1,000 ML IVLG SCH (08:08)
[2017-03-11] MEDS ORDERED: Meperidine 50mg/ml Inj(FOR RIGORS ONLY) IV PRN (08:15)
[2017-03-11] MEDS ORDERED: Midazolam 2mg/2ml Inj IVP PRN (08:15)
[2017-03-11] MEDS ORDERED: Ketorolac 30mg Inj IV PRN (08:15)
[2017-03-11] MEDS ORDERED: DiphenhydrAMINE 50mg/ml Inj IVP PRN ×3 (08:15→17:00)
[2017-03-11] MEDS ORDERED: Hydromorphone 0.5mg/0.5ml inj IVP PRN (08:15)
--- NOTE | 2017-03-11 08:53 | Operative Note - PDOC ---
Operative Note Operative Note Pre-op Diagnosis: Bilateral groin infected tissue Procedure: Closure of groin, thigh. mons and left buttock wounds Surgeon: Alejo Residential Appraiser: Alysha Anesthesia: general Specimen: yes Complications: none Estimated Blood Loss: minimal Drains: SOLANGE Implant(s) used?: No DAO CINTRON Mar 11, 2017 08:53
[2017-03-11] MEDS: Heparin 5000 units/ml inj SUBQ SCH ×2 (09:00→21:16)
[2017-03-11] MEDS: Docusate 100mg cap ORAL SCH ×2 (09:00→21:16)
[2017-03-11] MEDS ORDERED: Heparin 5000 units/ml inj SUBQ SCH (09:00)
[2017-03-11] MEDS ORDERED: Rate Change PCA 1 Each MISC PRN ×3 (09:10→17:00)
[2017-03-11] MEDS ORDERED: PCA HYDROmorphone 1mg/ml 30 ML IV PRN (09:10)
[2017-03-11] MEDS ORDERED: PCA shift volume MISC SCH ×2 (09:10→19:00)
[2017-03-11] MEDS ORDERED: LORazepam 1mg tab ORAL PRN ×2 (09:20→16:45)
[2017-03-11] MEDS ORDERED: Naloxone 0.4mg/ml Inj IVP PRN ×2 (09:20→17:00)
[2017-03-11] MEDS ORDERED: PCA Morphine 1mg/ml 30 ML IV PRN (09:20)
--- NOTE | 2017-03-11 10:27 | Immediate Post-Op Evaluation ---
Immediate Post-Op Evalulation Immediate Post-Op Evalulation Procedure: Revision and closure of bilateral groin wounds Date of Evaluation: Mar 11, 2017 Time of Evaluation: 09:11 IV Fluids: 1000 Blood Products: none Estimated Blood Loss: 50 Urinary Output: 250 Blood Pressure Systolic: 116 Blood Pressure Diastolic: 72 Pulse Rate: 84 Respiratory Rate: 20 O2 Sat by Pulse Oximetry: 99 Temperature (Fahrenheit): 98.6 Pain Score (1-10): 2 Nausea: No Vomiting: No Complications none Patient Status: awake, patent, extubated, none Hydration Status: adequate ANDREW THOMAS M.D. Mar 11, 2017 10:27
[2017-03-11] MEDS: D5 1/2NS 1,000 ML IV SCH (12:24)
--- NOTE | 2017-03-11 14:38 | 48 Hour Post Anesthesia Eval ---
Post Anesthesia Evaluation Procedure: Revision and closure of bilateral groin wounds Date of Evaluation: Mar 11, 2017 Time of Evaluation: 14:44 Blood Pressure Systolic: 96 0: 52 Pulse Rate: 69 Respiratory Rate: 18 Temperature (Fahrenheit): 97 O2 Sat by Pulse Oximetry: 98 Airway: patent Nausea: No Vomiting: No Pain Intensity: 2 Hydration Status: adequate Cardiopulmonary Status: Stable Mental Status/LOC: patient returned to baseline Follow-up Care/Observations: 0 Post-Anesthesia Complications: 0 Follow-up care needed: N/A Fabio Sarah MD Mar 11, 2017 14:38
--- NOTE | 2017-03-11 17:16 | Operative Note - Dictated ---
DATE OF OPERATION: 03/11/2017 PREOPERATIVE DIAGNOSES: 1. Bilateral open thigh wound. 2. Open left buttock wound. 3. Open mons wound. POSTOPERATIVE DIAGNOSES: 1. Bilateral open thigh wounds. 2. Open left buttock wound. 3. Open mons wound. PROCEDURES: 1. Preparation of bilateral thigh wounds for closure. 2. Preparation of left mons wound for closure. 3. Preparation of left buttock wound for closure. 4. Reelevation of posterior buttock flap for closure of left buttock wound. 5. Reelevation of posterior thigh flap for closure of right thigh wound. SURGEON: Gloria Dhillon M.D. REPAIR WELDER: Jaskaran Encarnacion M.D. ANESTHESIA: General. COMPLICATIONS: None. DRAINS: Included right thigh SOLANGE. DISPOSITION: Stable to the recovery room. INDICATIONS FOR SURGERY: This is a 36-year-old female, who is 48 hours status post radical revision of infected groin and thigh tissue as well as excision of buttock and mons tissue, who had been left with open wounds with open wound care and is now prepared to undergo definitive wound closure. She understands the risks and benefits of surgery and agrees to proceed. DETAILS OF THE OPERATION: The patient was brought to the operating room and laid in the lithotomy position in the operating room table. Her lower abdomen, bilateral buttock and thighs were prepped and draped in a sterile and usual fashion. We first began by repairing all the wounds for definitive wound closure by debriding some of the nonviable tissue in all areas. Once this was done, we then proceeded to perform a complex closure of the left groin and thigh wound by using #0 and 2-0 Vicryl sutures to reapproximate the deep tissue as well as the dermis and the skin was closed with interrupted vertical mattress 2-0 Prolene sutures. We then turned our attention to the left buttock wound where we had to re-elevate the posterior buttock flap that was elevated previously at the first operation and the flap was advanced and allowed for complete closure of the buttock wound using #0 and 2-0 Vicryl sutures and 2-0 Prolene was used to close the skin. For the right right thigh wound, it was necessary to re-elevate the posterior thigh flap that was based off of perforators to the femoral artery to allow for full advancement of the flap and closure of the wound using #0 and 2-0 Vicryl sutures to reapproximate the edges of the posterior thigh flap to the medial skin edge as well as to the anterior medial thigh flap had been also elevated. The wound on this side was closed over SOLANGE drain and the SOLANGE drain was secured in place with a 2-0 nylon suture. The patient tolerated the procedure well. There is no complications. Gloria Dhillon M.D. DR: Damon JOB#: [id number] CC:
[2017-03-11] MEDS: PCA HYDROmorphone 1mg/ml 30 ML IV PRN (17:20)
[2017-03-11] MEDS ORDERED: D5 1/2NS 1000ml IV ONE (17:51)
--- NOTE | 2017-03-11 18:55 | General Progress Note ---
Assessment/Plan Problem List: (1) Abscess ICD Codes: L02.91 - Cutaneous abscess, unspecified SNOMED: [id number] (2) Hidradenitis suppurativa ICD Codes: L73.2 - Hidradenitis suppurativa SNOMED: [id number] Status: stable Assessment/Plan Appreciate plastic surgery rec's s/p debridement of bilateral groin and flap elevation on 03/09/17 s/p closure of groin, thigh. mons and left buttock wounds on 03/11/17 Cont IV abx F/u cultures Wound care per surgery Post operative recommendations include: - encourage mobilization/ambulation - encourage incentive spirometry to optimize pulmonary hygiene - DVT/GI prophylaxis as appropriate--SCDs, HSQ - pain control, supportive care, bowel regimen DVT ppx: SCDs, HSQ as pt is now moderate risk postop D/w pt/family, RN, SW/CM, surgery regarding mgmt and dispo Subjective Date patient seen: Mar 11, 2017 Time patient seen: 14:00 ROS Limited/Unobtainable: No Constitutional: Reports: no symptoms HEENT: Reports: no symptoms Cardiovascular: Reports: no symptoms Respiratory: Reports: no symptoms Gastrointestinal/Abdominal: Reports: no symptoms Genitourinary: Reports: no symptoms Neurologic/Psychiatric: Reports: no symptoms Endocrine: Reports: no symptoms Hematologic/Lymphatic: Reports: no symptoms Allergies: Coded Allergies: CIPROFLOXACIN (Verified Allergy, Mild, Joint Pain, 03/08/17) All Systems: reviewed and negative except above Subjective No acute o/n events s/p debridement of bilateral groin and flap elevation POD#2 s/p closure of groin, thigh. mons and left buttock wounds today Pt doing well. Pain controlled. Denies f/c, chest pain, n/v, SOB, abd pain Objective Last 24 Hour Vital Signs Date Time Temp Pulse Resp B/P (MAP) Pulse Ox O2 Delivery O2 Flow Rate FiO2 03/11/17 16:00 18 03/11/17 16:00 98.3 68 20 103/68 98 Room Air 03/11/17 15:30 Nasal Cannula 2.0 28 03/11/17 15:30 99 Nasal Cannula 2.0 28 03/11/17 14:38 69 18 98 03/11/17 12:30 18 03/11/17 12:00 18 03/11/17 12:00 97.0 69 18 96/52 98 Nasal Cannula 3.0 03/11/17 10:45 17 03/11/17 10:35 98.6 65 17 111/64 99 Nasal Cannula 3.0 03/11/17 10:30 16 03/11/17 10:27 84 20 99 03/11/17 10:15 14 03/11/17 10:15 97.5 71 14 105/62 100 Nasal Cannula 3.0 03/11/17 10:00 70 13 104/60 100 Nasal Cannula 3.0 03/11/17 10:00 97.6 03/11/17 10:00 97.6 03/11/17 10:00 13 03/11/17 09:47 15 03/11/17 09:45 72 15 105/64 100 Nasal Cannula 3.0 03/11/17 09:30 85 18 110/65 100 Nasal Cannula 3.0 03/11/17 09:20 79 17 110/65 100 Nasal Cannula 3.0 03/11/17 09:15 71 13 110/65 100 Simple Mask 6.0 03/11/17 09:10 81 14 103/66 100 Simple Mask 6.0 03/11/17 09:07 97.4 85 15 111/68 99 Simple Mask 6.0 03/11/17 04:57 98.2 79 19 91/53 97 Room Air 03/11/17 04:00 18 03/11/17 00:47 98.4 89 18 106/59 96 Room Air 03/11/17 00:00 18 03/10/17 20:49 97.6 88 19 96/58 97 Room Air 03/10/17 20:00 18 Intake and Output 03/11/17 03/12/17 19:00 07:00 Intake Total 1340 ml Output Total 1260 ml Balance 80 ml Intake Oral 240 ml IV Total 1100 ml Output Urine Total 1200 ml Drainage Total 10 ml Estimated Blood Loss 50 ml Height (Feet): 5 Height (Inches): 4.00 Weight (Pounds): 189 Objective General: alert, cooperative, no distress, appears stated age Head: normocephalic, without obvious abnormality, atraumatic Eyes: conjunctivae/corneas clear. PERRL, EOM's intact Throat: lips, mucosa, and tongue normal. MMM Neck: supple, symmetrical, trachea midline, and no JVD Lungs: clear to auscultation bilaterally Heart: regular rate and rhythm, S1, S2 normal, no murmur, click, rub or gallop Abdomen: soft, non-tender, non-distended, bowel sounds normal; no masses or organomegaly Extremities: extremities normal, atraumatic, no cyanosis or edema Pulses: 2+ and symmetric Skin: Dressing c/d/i Neurologic: grossly normal, no focal deficits Wolf Feliciano M.D. Mar 11, 2017 18:55
[2017-03-12] VITALS: BP 98/55
[2017-03-12] MEDS: D5 1/2NS 1,000 ML IV SCH (01:24)
[2017-03-12] MEDS: ceFAZolin sod 1 GM in D5W 55 ML IVP SCH ×3 (01:24→17:31)
[2017-03-12 04:00] VITALS: BP 94/55
[2017-03-12] MEDS: PCA shift volume MISC SCH ×2 (07:00→19:18)
[2017-03-12 07:35] LABS: BASOPHILS % (AUTO) 0.4 % (0.0-2.0); EOSINOPHILS % (AUTO) 2.6 % (0.0-3.0); LYMPHOCYTES % (AUTO) 27.2 % (20.0-45.0); MEAN CORPUSCULAR HEMOGLOBIN 33.1 PG (27.0-31.0); MEAN CORPUSCULAR HGB CONC 33.9 G/DL (32.0-36.0); MEAN CORPUSCULAR VOLUME 98 FL (80-99); MEAN PLATELET VOLUME 8.9 FL (6.5-10.1); MONOCYTES % (AUTO) 9.1 % (1.0-10.0); NEUTROPHILS % (AUTO) 60.6 % (45.0-75.0); PLATELET COUNT 137 K/UL (150-450); RED BLOOD COUNT 3.15 M/UL (4.20-5.40); RED CELL DISTRIBUTION WIDTH 11.5 % (11.6-14.8); WHITE BLOOD COUNT 10.7 K/UL (4.8-10.8)
[2017-03-12 07:55] LABS: ALANINE AMINOTRANSFERASE 10 U/L (12-78); ANION GAP 7 mmol/L (5-15); ASPARTATE AMINO TRANSFERASE 15 U/L (15-37); BILIRUBIN,DIRECT 0.1 MG/DL (0.0-0.3); CALCIUM 7.9 MG/DL (8.5-10.1); CARBON DIOXIDE 27 MMOL/L (21-32); CHLORIDE 104 MMOL/L (98-107); CREATININE 0.6 MG/DL (0.55-1.30); GLOMERULAR FILTRATION RATE > 60 mL/min (>60); POTASSIUM 3.5 MMOL/L (3.5-5.1); SODIUM 137 MMOL/L (136-145); TOTAL PROTEIN 6.3 G/DL (6.4-8.2)
[2017-03-12 08:08] VITALS: BP 94/96
[2017-03-12] MEDS: Docusate 100mg cap ORAL SCH ×2 (09:46→20:24)
[2017-03-12] MEDS: Heparin 5000 units/ml inj SUBQ SCH ×2 (09:47→21:00)
[2017-03-12 11:53] VITALS: BP 105/65
[2017-03-12 16:00] VITALS: BP 113/74
[2017-03-12] MEDS: PCA HYDROmorphone 1mg/ml 30 ML IV PRN (17:36)
[2017-03-12 20:20] VITALS: BP 96/54
[2017-03-12] MEDS ORDERED: D5 1/2NS 1000ml IV ONE (22:09)
--- NOTE | 2017-03-12 23:39 | General Progress Note ---
Assessment/Plan Problem List: (1) Abscess ICD Codes: L02.91 - Cutaneous abscess, unspecified SNOMED: 610846787 (2) Hidradenitis suppurativa ICD Codes: L73.2 - Hidradenitis suppurativa SNOMED: 48590557 Status: stable Assessment/Plan Appreciate plastic surgery rec's s/p debridement of bilateral groin and flap elevation on 03/09/17 s/p closure of groin, thigh. mons and left buttock wounds on 03/11/17 Cont IV abx F/u cultures Wound care per surgery Post operative recommendations include: - encourage mobilization/ambulation - encourage incentive spirometry to optimize pulmonary hygiene - DVT/GI prophylaxis as appropriate--SCDs, HSQ - pain control, supportive care, bowel regimen DVT ppx: SCDs, HSQ as pt is now moderate risk postop D/w pt/family, RN, SW/CM, surgery regarding mgmt and dispo Subjective Date patient seen: Mar 12, 2017 Time patient seen: 14:50 ROS Limited/Unobtainable: No Constitutional: Reports: no symptoms HEENT: Reports: no symptoms Cardiovascular: Reports: no symptoms Respiratory: Reports: no symptoms Gastrointestinal/Abdominal: Reports: no symptoms Genitourinary: Reports: no symptoms Neurologic/Psychiatric: Reports: no symptoms Endocrine: Reports: no symptoms Hematologic/Lymphatic: Reports: no symptoms Allergies: Coded Allergies: CIPROFLOXACIN (Verified Allergy, Mild, Joint Pain, 03/08/17) All Systems: reviewed and negative except above Subjective No acute o/n events s/p debridement of bilateral groin and flap elevation POD#3 s/p closure of groin, thigh. mons and left buttock wounds POD#1 Pt doing well. Pain controlled. Denies f/c, chest pain, n/v, SOB, abd pain Objective Last 24 Hour Vital Signs Date Time Temp Pulse Resp B/P (MAP) Pulse Ox O2 Delivery O2 Flow Rate FiO2 03/12/17 20:20 98.4 81 18 96/54 100 Nasal Cannula 3.0 03/12/17 20:00 18 03/12/17 18:00 98.0 03/12/17 17:45 18 03/12/17 16:00 98.0 82 20 113/74 98 Room Air 03/12/17 12:00 18 03/12/17 11:53 98.0 79 20 105/65 99 Nasal Cannula 3.0 03/12/17 08:08 98.3 72 20 94/96 98 Nasal Cannula 2.0 03/12/17 08:00 18 03/12/17 07:00 Nasal Cannula 2.0 28 03/12/17 07:00 99 Nasal Cannula 2.0 28 03/12/17 04:15 18 03/12/17 04:00 98.2 78 18 94/55 99 Nasal Cannula 2.0 03/12/17 03:27 Nasal Cannula 2.0 28 03/12/17 03:27 99 Nasal Cannula 2.0 28 03/12/17 01:30 98.3 03/12/17 00:49 98.8 03/12/17 00:30 18 03/12/17 00:00 101.2 69 18 98/55 98 Nasal Cannula 2.0 Intake and Output 03/12/17 03/13/17 19:00 07:00 Intake Total 740 ml Balance 740 ml Intake Oral 740 ml Laboratory Tests 03/12/17 05:10: White Blood Count 10.7, Red Blood Count 3.15L, Hemoglobin 10.4L, Hematocrit 30.8L, Mean Corpuscular Volume 98, Mean Corpuscular Hemoglobin 33.1H, Mean Corpuscular Hemoglobin Concent 33.9, Red Cell Distribution Width 11.5L, Platelet Count 137L, Mean Platelet Volume 8.9, Neutrophils (%) (Auto) 60.6, Lymphocytes (%) (Auto) 27.2, Monocytes (%) (Auto) 9.1, Eosinophils (%) (Auto) 2.6, Basophils (%) (Auto) 0.4, Sodium Level 137, Potassium Level 3.5, Chloride Level 104, Carbon Dioxide Level 27, Anion Gap 7, Blood Urea Nitrogen 3L, Creatinine 0.6, Estimat Glomerular Filtration Rate > 60, Glucose Level 85, Calcium Level 7.9L, Total Bilirubin 0.7, Direct Bilirubin 0.1, Aspartate Amino Transf (AST/SGOT) 15, Alanine Aminotransferase (ALT/SGPT) 10L, Alkaline Phosphatase 49, Total Protein 6.3L, Albumin 2.4L Height (Feet): 5 Height (Inches): 4.00 Weight (Pounds): 189 Objective General: alert, cooperative, no distress, appears stated age Head: normocephalic, without obvious abnormality, atraumatic Eyes: conjunctivae/corneas clear. PERRL, EOM's intact Throat: lips, mucosa, and tongue normal. MMM Neck: supple, symmetrical, trachea midline, and no JVD Lungs: clear to auscultation bilaterally Heart: regular rate and rhythm, S1, S2 normal, no murmur, click, rub or gallop Abdomen: soft, non-tender, non-distended, bowel sounds normal; no masses or organomegaly Extremities: extremities normal, atraumatic, no cyanosis or edema Pulses: 2+ and symmetric Skin: Dressing c/d/i Neurologic: grossly normal, no focal deficits Wolf Feliciano M.D. Mar 12, 2017 23:39
[2017-03-13] VITALS (7 sets, daily range): BP systolic 81–122; BP diastolic 51–80
[2017-03-13] MEDS: ceFAZolin sod 1 GM in D5W 55 ML IVP SCH ×3 (01:27→17:28)
[2017-03-13] MEDS: PCA shift volume MISC SCH ×2 (07:07→19:05)
[2017-03-13] MEDS: Docusate 100mg cap ORAL SCH ×2 (08:32→20:22)
[2017-03-13] MEDS: Heparin 5000 units/ml inj SUBQ SCH ×2 (08:46→20:22)
[2017-03-13] MEDS ORDERED: Morphine Sulfate 4mg/ml Inj IVP PRN (09:30)
[2017-03-13] MEDS ORDERED: DiphenhydrAMINE 50mg/ml Inj IVP PRN ×2 (09:30→17:00)
[2017-03-13] MEDS ORDERED: Morphine Sulfate 2mg/ml Inj IVP PRN (09:30)
--- NOTE | 2017-03-13 12:23 | General Progress Note ---
Assessment/Plan Problem List: (1) Abscess ICD Codes: L02.91 - Cutaneous abscess, unspecified SNOMED: 836856142 (2) Hidradenitis suppurativa ICD Codes: L73.2 - Hidradenitis suppurativa SNOMED: [id number] Status: stable Assessment/Plan Appreciate plastic surgery rec's s/p debridement of bilateral groin and flap elevation on 03/09/17 s/p closure of groin, thigh. mons and left buttock wounds on 03/11/17 Cont IV abx F/u cultures Wound care per surgery Post operative recommendations include: - encourage mobilization/ambulation - encourage incentive spirometry to optimize pulmonary hygiene - DVT/GI prophylaxis as appropriate--SCDs, HSQ - pain control, supportive care, bowel regimen DVT ppx: SCDs, HSQ as pt is now moderate risk postop D/w pt/family, RN, SW/CM, surgery regarding mgmt and dispo Subjective Date patient seen: Mar 13, 2017 Time patient seen: 12:23 ROS Limited/Unobtainable: No Constitutional: Reports: no symptoms HEENT: Reports: no symptoms Cardiovascular: Reports: no symptoms Respiratory: Reports: no symptoms Gastrointestinal/Abdominal: Reports: no symptoms Genitourinary: Reports: no symptoms Neurologic/Psychiatric: Reports: no symptoms Endocrine: Reports: no symptoms Hematologic/Lymphatic: Reports: no symptoms Allergies: Coded Allergies: CIPROFLOXACIN (Verified Allergy, Mild, Joint Pain, 03/08/17) All Systems: reviewed and negative except above Subjective No acute o/n events s/p debridement of bilateral groin and flap elevation POD#4 s/p closure of groin, thigh. mons and left buttock wounds POD#2 Pt doing well. Pain controlled. Denies f/c, chest pain, n/v, SOB, abd pain Objective Last 24 Hour Vital Signs Date Time Temp Pulse Resp B/P (MAP) Pulse Ox O2 Delivery O2 Flow Rate FiO2 03/13/17 10:22 Room Air 03/13/17 10:22 96 Room Air 03/13/17 09:58 122/80 96 Room Air 03/13/17 08:00 98.3 77 18 85/53 96 Room Air 03/13/17 08:00 81/54 03/13/17 04:00 18 03/13/17 04:00 98.2 90 17 93/56 95 Room Air 03/13/17 00:37 98.9 85 18 91/51 100 Room Air 03/13/17 00:02 17 03/12/17 20:20 98.4 81 18 96/54 100 Nasal Cannula 3.0 03/12/17 20:00 18 03/12/17 18:00 98.0 03/12/17 17:45 18 03/12/17 16:00 98.0 82 20 113/74 98 Room Air Intake and Output 03/13/17 03/14/17 19:00 07:00 Intake Total 355 ml Balance 355 ml Intake Oral 300 ml IV Total 55 ml Height (Feet): 5 Height (Inches): 4.00 Weight (Pounds): 189 Objective General: alert, cooperative, no distress, appears stated age Head: normocephalic, without obvious abnormality, atraumatic Eyes: conjunctivae/corneas clear. PERRL, EOM's intact Throat: lips, mucosa, and tongue normal. MMM Neck: supple, symmetrical, trachea midline, and no JVD Lungs: clear to auscultation bilaterally Heart: regular rate and rhythm, S1, S2 normal, no murmur, click, rub or gallop Abdomen: soft, non-tender, non-distended, bowel sounds normal; no masses or organomegaly Extremities: extremities normal, atraumatic, no cyanosis or edema Pulses: 2+ and symmetric Skin: Dressing c/d/i Neurologic: grossly normal, no focal deficits Wolf Feliciano M.D. Mar 13, 2017 12:23
[2017-03-13] MEDS ORDERED: Naloxone 0.4mg/ml Inj IVP PRN (15:47)
[2017-03-13] MEDS ORDERED: Rate Change PCA 1 Each MISC PRN (16:00)
[2017-03-13] MEDS ORDERED: LORazepam 1mg tab ORAL PRN (16:45)
[2017-03-13] MEDS ORDERED: PCA HYDROmorphone 1mg/ml 30 ML IV PRN (17:00)
[2017-03-14 01:00] VITALS: BP 98/53
[2017-03-14] MEDS: ceFAZolin sod 1 GM in D5W 55 ML IVP SCH ×3 (01:16→17:22)
[2017-03-14 04:00] VITALS: BP 96/59
[2017-03-14] MEDS: PCA shift volume MISC SCH (07:14)
[2017-03-14 08:00] VITALS: BP 102/66
[2017-03-14] MEDS: Docusate 100mg cap ORAL SCH ×2 (08:53→20:41)
[2017-03-14] MEDS: Heparin 5000 units/ml inj SUBQ SCH ×2 (08:56→20:50)
[2017-03-14] MEDS ORDERED: Norco 10mg/325mg tab ORAL PRN (10:00)
[2017-03-14 12:00] VITALS: BP 121/84
[2017-03-14] MEDS ORDERED: KEFLEX500 MG ORAL (15:06)
[2017-03-14 16:00] VITALS: BP 109/59
[2017-03-14] MEDS: Norco 7.5mg/325mg tab ORAL PRN ×2 (16:04→20:01)
[2017-03-14] MEDS: Cephalexin 500mg cap ORAL SCH ×2 (18:11→20:41)
--- NOTE | 2017-03-14 19:57 | General Progress Note ---
Assessment/Plan Problem List: (1) Abscess ICD Codes: L02.91 - Cutaneous abscess, unspecified SNOMED: 317709173 (2) Hidradenitis suppurativa ICD Codes: L73.2 - Hidradenitis suppurativa SNOMED: [id number] Status: stable Assessment/Plan Appreciate plastic surgery rec's s/p debridement of bilateral groin and flap elevation on 03/09/17 s/p closure of groin, thigh. mons and left buttock wounds on 03/11/17 Cont IV abx F/u cultures Wound care per surgery Post operative recommendations include: - encourage mobilization/ambulation - encourage incentive spirometry to optimize pulmonary hygiene - DVT/GI prophylaxis as appropriate--SCDs, HSQ - pain control, supportive care, bowel regimen Home health ordered for wound care Likely d/c tomorrow per surgery DVT ppx: SCDs, HSQ as pt is now moderate risk postop D/w pt/family, RN, SW/CM, surgery regarding mgmt and dispo Subjective Date patient seen: Mar 14, 2017 Time patient seen: 14:00 ROS Limited/Unobtainable: No Constitutional: Reports: no symptoms HEENT: Reports: no symptoms Cardiovascular: Reports: no symptoms Respiratory: Reports: no symptoms Gastrointestinal/Abdominal: Reports: no symptoms Genitourinary: Reports: no symptoms Neurologic/Psychiatric: Reports: no symptoms Endocrine: Reports: no symptoms Allergies: Coded Allergies: CIPROFLOXACIN (Verified Allergy, Mild, Joint Pain, 03/08/17) All Systems: reviewed and negative except above Subjective No acute o/n events s/p debridement of bilateral groin and flap elevation POD#5 s/p closure of groin, thigh. mons and left buttock wounds POD#3 Pt doing well. Pain controlled. Denies f/c, chest pain, n/v, SOB, abd pain Ambulating more No BM yet Objective Last 24 Hour Vital Signs Date Time Temp Pulse Resp B/P (MAP) Pulse Ox O2 Delivery O2 Flow Rate FiO2 03/14/17 17:03 98.0 03/14/17 16:00 98.2 83 18 109/59 97 Room Air 03/14/17 13:10 98.0 03/14/17 12:00 97.2 110 20 121/84 95 Room Air 03/14/17 11:00 18 03/14/17 08:00 98.0 84 17 102/66 96 Room Air 03/14/17 08:00 18 03/14/17 04:00 17 03/14/17 04:00 97.9 77 18 96/59 97 Room Air 03/14/17 01:00 98.4 89 18 98/53 96 Room Air 03/14/17 00:12 18 03/13/17 20:00 16 03/13/17 20:00 98.2 93 18 101/66 96 Room Air Intake and Output 03/14/17 03/15/17 19:00 07:00 Intake Total 655 ml Output Total 360 ml Balance 295 ml Intake Oral 600 ml IV Total 55 ml Output Urine Total 350 ml Drainage Total 10 ml # Voids 1 Height (Feet): 5 Height (Inches): 4.00 Weight (Pounds): 189 Objective General: alert, cooperative, no distress, appears stated age Head: normocephalic, without obvious abnormality, atraumatic Eyes: conjunctivae/corneas clear. PERRL, EOM's intact Throat: lips, mucosa, and tongue normal. MMM Neck: supple, symmetrical, trachea midline, and no JVD Lungs: clear to auscultation bilaterally Heart: regular rate and rhythm, S1, S2 normal, no murmur, click, rub or gallop Abdomen: soft, non-tender, non-distended, bowel sounds normal; no masses or organomegaly Extremities: extremities normal, atraumatic, no cyanosis or edema Pulses: 2+ and symmetric Skin: Dressing c/d/i Neurologic: grossly normal, no focal deficits Wolf Feliciano M.D. Mar 14, 2017 19:57
[2017-03-14 20:47] VITALS: BP 115/65
[2017-03-15] MEDS: Norco 7.5mg/325mg tab ORAL PRN (00:06)
[2017-03-15 00:17] VITALS: BP 114/63
[2017-03-15] MEDS: Norco 10mg/325mg tab ORAL PRN ×3 (04:01→14:27)
[2017-03-15 08:00] VITALS: BP 98/50
[2017-03-15] MEDS: Docusate 100mg cap ORAL SCH (08:56)
[2017-03-15] MEDS: Cephalexin 500mg cap ORAL SCH ×2 (08:56→12:51)
[2017-03-15] MEDS: Heparin 5000 units/ml inj SUBQ SCH (09:00)
[2017-03-15] MEDS ORDERED: NORCO 5-325 TA1 EACH ORAL (11:09)
[2017-03-15] MEDS ORDERED: NORCO 5-325 TA1 EAC1 ORAL (11:11)
[2017-03-15 12:00] VITALS: BP 106/64
[2017-03-15] MEDS ORDERED: NS 275ml ONE (15:34)
--- NOTE | 2017-03-15 16:29 | Discharge Summary ---
Discharge Summary Hospital Course Date of Admission Mar 08, 2017 at 13:44 Date of Discharge Mar 15, 2017 at 15:35 Admitting Diagnosis hidradenitis Reason for Hospitalization: abscess HPI 36y/o female with pmh of hidradenitis suppurative who presents with worsening b/ l groin lesions. Pt had recurrent symptoms in groin area off and on for 10 years. She has tried various antibitoic regimens without success. She has also been on Humira up until 12/2016 but w/o much effect. She notes worsening pain/ swelling/redness/drainage from groin lesions. Denies f/c, n/v, d/c, chest pain, SOB, dysuria. Has had general anesthesia before without any problems. Able to walk a few blocks or climb at least a flight of stairs without symptoms of chest pain or SOB. Consultations Plastic surgery Procedures Debridement of bilateral groin and flap elevation on 03/09/17 Closure of groin, thigh. mons and left buttock wounds on 03/11/17 Hospital Course Pt was admitted and continued on IV antibiotics. She was seen by surgery and underwent debridement of bilateral groin and flap elevation on 03/09/17 followed by closure of groin, thigh. mons and left buttock wounds on 03/11/17. Once pain controlled and wounds stable, she was discharged home with home health for continued wound care. She was given oral pain meds and oral antibiotics on discharge. Discharge Medications New Medications: Cephalexin* (Keflex*) 500 Mg Capsule 500 MG ORAL EVERY 6 HOURS for 7 Days, #28 CAP 0 Refills Continued Medications: Hydrocodone Bit/Acetaminophen 5-325* ([place] 5-325*) 1 Each Tablet 1 TAB ORAL Q6H PRN for Moderate Pain (Pain Scale 4-6), #40 TAB 0 Refills Hydrocodone Bit/Acetaminophen 5-325* ([place] 5-325 Tablet*) 1 Each Tablet 2 TAB ORAL Q6HR for SEVERE PAIN, #40 TAB Discharge Condition Upon Discharge: stable Discharge Disposition Patient was discharged to Home with Home Health(06) Discharge Diagnoses: (1) Hidradenitis suppurativa (2) Abscess (3) Acute blood loss anemia Wolf Feliciano M.D. Mar 15, 2017 16:29
== END 2017-03-15 15:35 | disposition home health service (06) | DRG 577 ==
LOC: EMR 13:10 → EDBEDREQ 13:31 → 3E 13:44 → EDBEDREQ 15:16 → 3E 15:55
PROC: 0JXL0ZC Transfer Right Upper Leg Subcutaneous Tissue and Fascia with Skin, Subcutaneous Tissue and Fascia, Open Approach (ICD-10-PCS; principal; 2017-03-09 07:30)
PROC: 0JBC0ZZ Excision of Pelvic Region Subcutaneous Tissue and Fascia, Open Approach (ICD-10-PCS; principal; 2017-03-09 07:30)
PROC: 0JXM0ZC Transfer Left Upper Leg Subcutaneous Tissue and Fascia with Skin, Subcutaneous Tissue and Fascia, Open Approach (ICD-10-PCS; principal; 2017-03-09 07:30)
PROC: 0J8 Subcutaneous Tissue and Fascia, Division (ICD-10-PCS; principal; 2017-03-09 07:30)
PROC: 0JBB0ZZ Excision of Perineum Subcutaneous Tissue and Fascia, Open Approach (ICD-10-PCS; principal; 2017-03-09 07:30)
PROC: 0JB90ZZ Excision of Buttock Subcutaneous Tissue and Fascia, Open Approach (ICD-10-PCS; principal; 2017-03-09 07:30)
PROC: 0JDC0ZZ Extraction of Pelvic Region Subcutaneous Tissue and Fascia, Open Approach (ICD-10-PCS; 2017-03-11)
PROC: 0JQB0ZZ Repair Perineum Subcutaneous Tissue and Fascia, Open Approach (ICD-10-PCS; 2017-03-11)
PROC: 0JXL0ZC Transfer Right Upper Leg Subcutaneous Tissue and Fascia with Skin, Subcutaneous Tissue and Fascia, Open Approach (ICD-10-PCS; 2017-03-11)
PROC: 0JDB0ZZ Extraction of Perineum Subcutaneous Tissue and Fascia, Open Approach (ICD-10-PCS; 2017-03-11)
PROC: 0JQC0ZZ Repair Pelvic Region Subcutaneous Tissue and Fascia, Open Approach (ICD-10-PCS; 2017-03-11)
PROC: 0JD90ZZ Extraction of Buttock Subcutaneous Tissue and Fascia, Open Approach (ICD-10-PCS; 2017-03-11)
PROC: 0JXM0ZC Transfer Left Upper Leg Subcutaneous Tissue and Fascia with Skin, Subcutaneous Tissue and Fascia, Open Approach (ICD-10-PCS; 2017-03-11)
DX: L73.2 Hidradenitis suppurativa (principal); D62 Acute posthemorrhagic anemia; L02.214 Cutaneous abscess of groin; L02.215 Cutaneous abscess of perineum; L02.31 Cutaneous abscess of buttock
CPT/HCPCS: 36415; 80048; 80053; 80076; 81003; 81025; 83605; 85025; 85610; 85730; 86850; 86900; 86901; 87040; 93005; 94003; 94150; 94760; 99285; J2250; J2405; J2710; J2765